=== PATIENT | female | born 1955 | race Two or more races ===

== ENCOUNTER 2022-05-24 14:57 | Emergency (ER) | payer OTHER ==
[~2022-05-24] VITALS: Ht 157.5 cm; Wt 118.0 kg
[2022-05-24 17:08] LABS: Basophils # (auto) 0.1 10 ^3/uL (0-0.2); Eosinophils # (auto) 0 10 ^3/uL (0-0.8); Eosinophils % (auto) 0.2 % (0.0-7.0); Hemoglobin 12.3 g/dL (12.2-16.2); Lymphocytes # (auto) 1.9 10 ^3/uL (0.4-5.4); Lymphocytes % (auto) 25.6 % (10.0-50.0); Mean Corpuscular Hemoglobin 30.4 pg (28.0-32.0); Mean Corpuscular Hgb Conc. 33.2 g/dL (32.0-36.0); Mean Corpuscular Volume 91.6 fL (80.0-100.0); Monocytes # (auto) 0.5 10 ^3/uL (0-1.3); Monocytes % (auto) 7.1 % (0.0-12.0); Neutrophils # (auto) 4.9 10 ^3/uL (1.6-8.6); Neutrophils % (auto) 66.1 % (37.0-80.0); Red Blood Cells 4.04 10^6/uL (4.0-5.20); Red Cell Distribution Width 15.7 % (11.8-14.3); White Blood Cell 7.4 10^3/uL (4.4-10.8)
[2022-05-24] MEDS ORDERED: OXYMETAZOLINE HCL 0.05 % NASAL SPRAY 15ML EACHNOSTRI ONE (18:00)
[2022-05-24 20:55] VITALS: BP 129/90
== END 2022-05-24 20:56 | disposition home or self-care (01) ==
LOC: ER 14:57
DX: R04.0 Epistaxis (principal)
CPT/HCPCS: 36415; 85025

== ENCOUNTER 2023-04-25 02:03 | Emergency (ER) | payer OTHER ==
[~2023-04-25] VITALS: Ht 177.8 cm; Wt 126.8 kg
[2023-04-25] MEDS ORDERED: cloNIDine HCL 0.1 MG TAB PO ONE (02:30)
[2023-04-25 02:51] LABS: Basophils # (auto) 0 10 ^3/uL (0-0.2); Basophils % (auto) 0.6 % (0.0-2.0); Eosinophils # (auto) 0 10 ^3/uL (0-0.8); Eosinophils % (auto) 0.1 % (0.0-7.0); Hematocrit 38.9 % (36.0-46.0); Hemoglobin 12.8 g/dL (12.2-16.2); Lymphocytes # (auto) 1.5 10 ^3/uL (0.4-5.4); Lymphocytes % (auto) 18.7 % (10.0-50.0); Mean Corpuscular Hemoglobin 30.7 pg (28.0-32.0); Monocytes # (auto) 0.6 10 ^3/uL (0-1.3); Monocytes % (auto) 7.4 % (0.0-12.0); Neutrophils % (auto) 73.2 % (37.0-80.0); Red Blood Cells 4.18 10^6/uL (4.0-5.20); Red Cell Distribution Width 16.3 % (11.8-14.3); White Blood Cell 8.2 10^3/uL (4.4-10.8)
[2023-04-25 03:03] LABS: Chloride 104 mmol/L (98-107); Potassium 3.7 mmol/L (3.5-5.1); Sodium 138 mmol/L (136-145)
[2023-04-25 03:04] LABS: Anion Gap 5 (5-15); Carbon Dioxide 29 mmol/L (20-30)
[2023-04-25 03:05] LABS: Calcium 9.9 mg/dL (8.7-10.4)
[2023-04-25 03:09] LABS: Glucose 139 mg/dL (74-106)
[2023-04-25 03:10] LABS: BUN/Creatinine Ratio 10.1 (10.0-20.0); Blood Urea Nitrogen 7 mg/dL (9-23)
[2023-04-25 05:40] VITALS: PULSE 95; RESP 18; O2SAT 96
[2023-04-25 08:10] VITALS: PULSE 98; RESP 15; TEMP 98.3; O2SAT 95
[2023-04-25] MEDS ORDERED: OLME1TAB73 PO (09:13)
[2023-04-25 09:25] VITALS: BP 153/92; PULSE 72; RESP 16; O2SAT 95
== END 2023-04-25 09:30 | disposition home or self-care (01) ==
LOC: ER 02:03
DX: I10 Essential (primary) hypertension (principal); R79.1 Abnormal coagulation profile
CPT/HCPCS: 36415; 71046; 71275; 80048; 83880; 84484; 85025; 85379; 93005; 99285; Q9967

== ENCOUNTER 2023-06-18 21:45 | Emergency (ER) | payer OTHER ==
[~2023-06-18] VITALS: Ht 157.5 cm; Wt 127.3 kg
[~2023-06-18 21:45] MED LIST: OLME40TA76 PO
[2023-06-18 22:37] LABS: Basophils # (auto) 0.1 10 ^3/uL (0-0.2); Eosinophils # (auto) 0 10 ^3/uL (0-0.8); Eosinophils % (auto) 0.4 % (0.0-7.0); Hematocrit 41.2 % (36.0-46.0); Hemoglobin 13.2 g/dL (12.2-16.2); Lymphocytes # (auto) 1.9 10 ^3/uL (0.4-5.4); Mean Corpuscular Hemoglobin 29.7 pg (28.0-32.0); Mean Corpuscular Hgb Conc. 32.1 g/dL (32.0-36.0); Mean Corpuscular Volume 92.5 fL (80.0-100.0); Monocytes # (auto) 0.5 10 ^3/uL (0-1.3); Monocytes % (auto) 6.3 % (0.0-12.0); Neutrophils # (auto) 5.7 10 ^3/uL (1.6-8.6); Neutrophils % (auto) 69.3 % (37.0-80.0); Red Blood Cells 4.45 10^6/uL (4.0-5.20); Red Cell Distribution Width 15.3 % (11.8-14.3); White Blood Cell 8.2 10^3/uL (4.4-10.8)
[2023-06-18 22:43] LABS: Alanine Aminotransferase 29 U/L (7-40); Alkaline Phosphatase 75 U/L (46-116); Anion Gap 8 (5-15); Aspartate Aminotransferase 19 U/L (13-40); BUN/Creatinine Ratio 12.3 (10.0-20.0); Blood Urea Nitrogen 10 mg/dL (9-23); Calcium 10.2 mg/dL (8.5-10.1); Carbon Dioxide 29 mmol/L (20-30); Chloride 101 mmol/L (98-107); Glucose 137 mg/dL (74-106); Potassium 3.3 mmol/L (3.5-5.1); Sodium 138 mmol/L (136-145)
[2023-06-18 22:44] LABS: Bilirubin, Total 0.6 mg/dL (0.2-1.0); Total Protein 7.9 g/dL (5.7-8.2)
[2023-06-19 02:08] VITALS: BP 142/87; PULSE 95; RESP 16; O2SAT 100
[2023-06-19] MEDS: cloNIDine HCL 0.1 MG TAB PO ONE (02:09)
== END 2023-06-19 02:09 | disposition home or self-care (01) ==
LOC: ER 21:45
DX: I10 Essential (primary) hypertension (principal)
CPT/HCPCS: 36415; 71045; 80053; 84484; 85025; 93005